=== PATIENT | female | born 1950 | race Caucasian/White ===

== ENCOUNTER 2022-05-08 16:36 | Inpatient (IN) ==
[2022-05-08] MEDS ORDERED: Naloxone 0.4 MG/ML INJ IVP PRN (19:42)
[2022-05-08] MEDS ORDERED: Ondansetron 4 MG/2 ML VIAL IVP PRN (19:42)
[2022-05-08] MEDS ORDERED: *HR* HYDROcodone/Acet 5/325 mg TABLET PO PRN (19:42)
[2022-05-08] MEDS ORDERED: Melatonin 3 MG TABLET PO PRN (19:42)
[2022-05-08] MEDS ORDERED: *HR* OxyCODONE Immed Rel 5 MG TABLET PO PRN (19:42)
[2022-05-08] MEDS ORDERED: *HR* Promethazine 25 MG/ML VIAL IM PRN (19:42)
[2022-05-08] MEDS ORDERED: Acetaminophen 325 MG TABLET PO PRN (19:42)
[2022-05-08] MEDS ORDERED: Azithromycin 500 MG in 0.9 % Sodium Chloride 250 ML IVPB SCH (21:00)
[2022-05-08] MEDS ORDERED: *HR* Labetalol 20 MG/4 ML SYRINGE IVP PRN (22:14)
[2022-05-08] MEDS ORDERED: diazePAM 2 MG TABLET PO SCH (22:15)
[2022-05-08] MEDS: Ipratropium/Albuterol Neb 3 ML IH SCH (23:59)
[2022-05-09 02:08] LABS: Basophils % 0.2 %; Hematocrit 34.4 % (35.3-44.9); Hemoglobin 11.5 g/dL (11.5-15.4); Immature Granulocytes % 0.3 % (0-4); Lymphocytes # 0.9 K/mcL (0.6-4.6); Lymphocytes % 10.1 %; Mean Corpuscular HGB Conc 33.4 g/dL (31.6-35.5); Mean Corpuscular Hemoglobin 31.4 pg (28.0-33.3); Mean Platelet Volume 9.2 fL (9.4-12.4); Monocytes # 0.9 K/mcL (0.0-1.3); Monocytes % 9.5 %; Neutrophils # 7.3 K/mcL (1.6-8.9); Platelet Count 191 K/mcL (140-400); Red Blood Count 3.66 M/mcL (3.82-4.97); Red Cell Distribution Width 12.9 % (11.5-14.5); Segmented Neutrophils % 79.9 %; White Blood Count 9.1 K/mcL (4.3-11.1)
[2022-05-09 02:16] LABS: INR 1.1
[2022-05-09 02:28] LABS: BUN/Creatinine Ratio 17 (6-26); Blood Urea Nitrogen 8 mg/dL (8-23); Calcium 7.4 mg/dL (8.6-10.3); Carbon Dioxide 27 mEq/L (23-29); Chloride 109 mEq/L (98-107); Glucose 76 mg/dL (70-105); Magnesium 1.6 mg/dL (1.6-2.6); Osmolality,Calculated 297 (280-300); Potassium 3.2 mEq/L (3.5-5.1); Sodium 145 mEq/L (136-145); eGFR For African Americans > 60 (> 60); eGFR For Non-African Americans > 60 (> 60)
[2022-05-09] MEDS: Ipratropium/Albuterol Neb 3 ML IH SCH ×6 (04:12→23:50)
[2022-05-09] MEDS ORDERED: MethylPREDNISolone 40 MG/ML VIAL IVP SCH (06:00)
[2022-05-09] MEDS ORDERED: Potassium Chloride Elixir 20 MEQ/15 ML UDC PO ONE (07:43)
[2022-05-09] MEDS ORDERED: Talc (sterile) 4 GM, 0.9 % Sodium Chloride 50 ML, Syringe CATH TIP 1 EACH IX ONE (09:15)
[2022-05-09] MEDS ORDERED: Budesonide/Formoterol 80/4.5 1 PUFF INH IH SCH (10:00)
[2022-05-09] MEDS ORDERED: Ketamine HCL *QUVA* 50mg (1mL) SYRINGE ONE (11:04)
[2022-05-09] MEDS ORDERED: Ondansetron 4 MG/2 ML VIAL ONE (11:05)
[2022-05-09] MEDS ORDERED: Lidocaine -MPF 2% 2 ML VIAL ONE (11:05)
[2022-05-09] MEDS ORDERED: *HR* Rocuronium Bromide 50 MG/5 ML VIAL ONE (11:05)
[2022-05-09] MEDS ORDERED: *HR* Propofol 200 MG/20 ML VIAL IVP ONE (11:05)
[2022-05-09] MEDS ORDERED: methocarbamoL 500 MG TABLET PO PRN (12:16)
[2022-05-09] MEDS ORDERED: Sugammadex Sodium 200 MG/2 ML VIAL IV ONE (12:37)
[2022-05-09] MEDS: *HR* FentaNYL (PF) 100 MCG/2 ML VIAL IVP PRN ×3 (13:30→13:53)
[2022-05-09] MEDS ORDERED: Acetaminophen IV 1,000 MG/100 ML BAG IVPB ONE (14:38)
[2022-05-09] MEDS ORDERED: 0.9 % Sodium Chloride 1,000 ML IVC SCH (15:25)
[2022-05-09] MEDS ORDERED: Ondansetron 4 MG/2 ML VIAL IVP PRN (15:25)
[2022-05-09] MEDS ORDERED: Melatonin 3 MG TABLET PO PRN (15:25)
[2022-05-09] MEDS ORDERED: Acetaminophen 325 MG TABLET PO PRN (15:25)
[2022-05-09] MEDS ORDERED: *HR* Promethazine 25 MG/ML VIAL IM PRN (15:25)
[2022-05-09] MEDS: Gabapentin 300 MG CAPSULE PO SCH ×2 (15:45→21:58)
[2022-05-09] MEDS: *HR* OxyCODONE Immed Rel 5 MG TABLET PO PRN ×2 (15:45→21:59)
[2022-05-09] MEDS: *HR* Heparin 5,000 UNIT/ML VIAL SQ SCH (17:27)
[2022-05-09] MEDS: Ketorolac 30 MG/ML VIAL IVP SCH ×2 (17:27→23:53)
[2022-05-09] MEDS: Budesonide/Formoterol 80/4.5 1 PUFF INH IH SCH (20:24)
[2022-05-09] MEDS ORDERED: traZODone 50 MG TABLET PO SCH (21:00)
[2022-05-09] MEDS: diazePAM 2 MG TABLET PO SCH (21:58)
[2022-05-09] MEDS: Sennosides/Docusate Sodium TABLET PO SCH (21:58)
[2022-05-09] MEDS: Azithromycin 500 MG in 0.9 % Sodium Chloride 250 ML IVPB SCH (21:59)
[2022-05-09] MEDS: methocarbamoL 500 MG TABLET PO PRN (21:59)
[2022-05-09] MEDS: traZODone 50 MG TABLET PO SCH (21:59)
[2022-05-10 03:39] LABS: Basophils % 0.2 %; Hematocrit 35.2 % (35.3-44.9); Hemoglobin 11.8 g/dL (11.5-15.4); Immature Granulocytes % 0.7 % (0-4); Lymphocytes % 6.9 %; Mean Corpuscular HGB Conc 33.5 g/dL (31.6-35.5); Mean Corpuscular Hemoglobin 31.5 pg (28.0-33.3); Mean Corpuscular Volume 93.9 fL (83.0-100.0); Mean Platelet Volume 9.4 fL (9.4-12.4); Monocytes # 1.2 K/mcL (0.0-1.3); Monocytes % 7.9 %; Platelet Count 182 K/mcL (140-400); Red Blood Count 3.75 M/mcL (3.82-4.97); Red Cell Distribution Width 12.9 % (11.5-14.5); Segmented Neutrophils % 84.3 %
[2022-05-10 03:43] LABS: Neutrophils # 12.7 K/mcL (1.6-8.9)
[2022-05-10 03:56] LABS: BUN/Creatinine Ratio 23 (6-26); Blood Urea Nitrogen 15 mg/dL (8-23); Calcium 8.8 mg/dL (8.6-10.3); Carbon Dioxide 35 mEq/L (23-29); Chloride 102 mEq/L (98-107); Glucose 136 mg/dL (70-105); Osmolality,Calculated 293 (280-300); Potassium 3.7 mEq/L (3.5-5.1); Sodium 140 mEq/L (136-145); eGFR For African Americans > 60 (> 60); eGFR For Non-African Americans > 60 (> 60)
[2022-05-10] MEDS: Ipratropium/Albuterol Neb 3 ML IH SCH ×6 (04:19→23:34)
[2022-05-10] MEDS: Ketorolac 30 MG/ML VIAL IVP SCH ×3 (05:36→17:34)
[2022-05-10] MEDS: *HR* Heparin 5,000 UNIT/ML VIAL SQ SCH ×2 (05:37→17:35)
[2022-05-10] MEDS: Budesonide/Formoterol 80/4.5 1 PUFF INH IH SCH ×2 (07:40→20:07)
[2022-05-10] MEDS: BuPROPion XL (24 HR) 150 MG TABLET PO SCH (08:16)
[2022-05-10] MEDS: *HR* OxyCODONE Immed Rel 5 MG TABLET PO PRN ×2 (08:16→14:06)
[2022-05-10] MEDS: Gabapentin 300 MG CAPSULE PO SCH ×3 (08:17→20:56)
[2022-05-10] MEDS: predniSONE 20 MG TABLET PO SCH (08:17)
[2022-05-10] MEDS: Sennosides/Docusate Sodium TABLET PO SCH ×2 (08:17→20:56)
[2022-05-10] MEDS: Anastrozole 1 MG TABLET PO SCH (08:17)
[2022-05-10] MEDS ORDERED: predniSONE 20 MG TABLET PO SCH (09:00)
[2022-05-10] MEDS ORDERED: Anastrozole 1 MG TABLET PO SCH (09:00)
[2022-05-10] MEDS ORDERED: BuPROPion XL (24 HR) 150 MG TABLET PO SCH (09:00)
[2022-05-10] MEDS: *HR* HYDROcodone/Acet 5/325 mg TABLET PO PRN ×2 (11:13→17:35)
[2022-05-10] MEDS: methocarbamoL 500 MG TABLET PO PRN (20:56)
[2022-05-10] MEDS: Azithromycin 500 MG in 0.9 % Sodium Chloride 250 ML IVPB SCH (20:56)
[2022-05-10] MEDS: traZODone 50 MG TABLET PO SCH (20:57)
[2022-05-10] MEDS: diazePAM 2 MG TABLET PO SCH (20:57)
[2022-05-11] MEDS: Ketorolac 30 MG/ML VIAL IVP SCH ×4 (00:11→17:00)
[2022-05-11] MEDS: *HR* HYDROcodone/Acet 5/325 mg TABLET PO PRN (00:12)
[2022-05-11 01:33] LABS: Basophils % 0.1 %; Eosinophils % 0.1 %; Hematocrit 35.4 % (35.3-44.9); Hemoglobin 11.9 g/dL (11.5-15.4); Immature Granulocytes % 0.6 % (0-4); Mean Corpuscular HGB Conc 33.6 g/dL (31.6-35.5); Mean Corpuscular Hemoglobin 31.9 pg (28.0-33.3); Mean Corpuscular Volume 94.9 fL (83.0-100.0); Mean Platelet Volume 9.7 fL (9.4-12.4); Monocytes # 1.2 K/mcL (0.0-1.3); Monocytes % 8.6 %; Neutrophils # 11.7 K/mcL (1.6-8.9); Platelet Count 181 K/mcL (140-400); Red Blood Count 3.73 M/mcL (3.82-4.97); Red Cell Distribution Width 13.2 % (11.5-14.5); Segmented Neutrophils % 83.6 %
[2022-05-11 01:53] LABS: BUN/Creatinine Ratio 31 (6-26); Blood Urea Nitrogen 18 mg/dL (8-23); Calcium 8.5 mg/dL (8.6-10.3); Carbon Dioxide 31 mEq/L (23-29); Chloride 103 mEq/L (98-107); Glucose 140 mg/dL (70-105); Osmolality,Calculated 294 (280-300); Sodium 140 mEq/L (136-145); eGFR For African Americans > 60 (> 60); eGFR For Non-African Americans > 60 (> 60)
[2022-05-11] MEDS: Ipratropium/Albuterol Neb 3 ML IH SCH ×6 (04:00→23:03)
[2022-05-11] MEDS: *HR* Heparin 5,000 UNIT/ML VIAL SQ SCH ×2 (05:31→17:00)
[2022-05-11] MEDS: *HR* OxyCODONE Immed Rel 5 MG TABLET PO PRN ×2 (07:15→14:44)
[2022-05-11] MEDS: Anastrozole 1 MG TABLET PO SCH (07:16)
[2022-05-11] MEDS: BuPROPion XL (24 HR) 150 MG TABLET PO SCH (07:16)
[2022-05-11] MEDS: Gabapentin 300 MG CAPSULE PO SCH ×3 (07:16→20:10)
[2022-05-11] MEDS: predniSONE 20 MG TABLET PO SCH (07:16)
[2022-05-11] MEDS: Sennosides/Docusate Sodium TABLET PO SCH ×2 (07:17→20:10)
[2022-05-11] MEDS: Budesonide/Formoterol 80/4.5 1 PUFF INH IH SCH ×2 (07:55→20:09)
[2022-05-11] MEDS: methocarbamoL 500 MG TABLET PO PRN (20:10)
[2022-05-11] MEDS: diazePAM 2 MG TABLET PO SCH (20:10)
[2022-05-11] MEDS: traZODone 50 MG TABLET PO SCH (20:10)
[2022-05-11] MEDS: Azithromycin 500 MG in 0.9 % Sodium Chloride 250 ML IVPB SCH (20:12)
[2022-05-12 04:00] LABS: Basophils % 0.3 %; Eosinophils % 0.4 %; Hematocrit 33.4 % (35.3-44.9); Hemoglobin 10.9 g/dL (11.5-15.4); Immature Granulocytes % 0.6 % (0-4); Lymphocytes # 0.9 K/mcL (0.6-4.6); Lymphocytes % 9.6 %; Mean Corpuscular HGB Conc 32.6 g/dL (31.6-35.5); Mean Corpuscular Hemoglobin 31.3 pg (28.0-33.3); Mean Platelet Volume 10.2 fL (9.4-12.4); Monocytes # 0.8 K/mcL (0.0-1.3); Monocytes % 7.7 %; Platelet Count 184 K/mcL (140-400); Red Blood Count 3.48 M/mcL (3.82-4.97); Red Cell Distribution Width 13.2 % (11.5-14.5); Segmented Neutrophils % 81.4 %; White Blood Count 9.8 K/mcL (4.3-11.1)
[2022-05-12] MEDS: Ipratropium/Albuterol Neb 3 ML IH SCH ×5 (04:14→20:42)
[2022-05-12 04:26] LABS: BUN/Creatinine Ratio 27 (6-26); Blood Urea Nitrogen 18 mg/dL (8-23); Calcium 8.5 mg/dL (8.6-10.3); Carbon Dioxide 34 mEq/L (23-29); Chloride 104 mEq/L (98-107); Glucose 100 mg/dL (70-105); Osmolality,Calculated 292 (280-300); Potassium 4.3 mEq/L (3.5-5.1); Sodium 140 mEq/L (136-145); eGFR For African Americans > 60 (> 60); eGFR For Non-African Americans > 60 (> 60)
[2022-05-12] MEDS: *HR* Heparin 5,000 UNIT/ML VIAL SQ SCH ×2 (05:30→18:15)
[2022-05-12] MEDS: Budesonide/Formoterol 80/4.5 1 PUFF INH IH SCH ×2 (07:36→20:42)
[2022-05-12] MEDS: predniSONE 20 MG TABLET PO SCH (08:02)
[2022-05-12] MEDS: BuPROPion XL (24 HR) 150 MG TABLET PO SCH (08:02)
[2022-05-12] MEDS: Gabapentin 300 MG CAPSULE PO SCH ×3 (08:03→20:40)
[2022-05-12] MEDS: Anastrozole 1 MG TABLET PO SCH (08:03)
[2022-05-12] MEDS: *HR* HYDROcodone/Acet 5/325 mg TABLET PO PRN ×3 (08:03→20:40)
[2022-05-12] MEDS: Sennosides/Docusate Sodium TABLET PO SCH ×2 (08:03→20:40)
[2022-05-12 13:15] LABS: Magnesium 2.2 mg/dL (1.6-2.6)
[2022-05-12] MEDS: methocarbamoL 500 MG TABLET PO PRN (15:45)
[2022-05-12] MEDS: diazePAM 2 MG TABLET PO SCH (20:40)
[2022-05-12] MEDS: traZODone 50 MG TABLET PO SCH (20:40)
[2022-05-13] MEDS: Ipratropium/Albuterol Neb 3 ML IH SCH ×7 (00:01→22:50)
[2022-05-13] MEDS: *HR* OxyCODONE Immed Rel 5 MG TABLET PO PRN ×3 (05:47→18:23)
[2022-05-13] MEDS: *HR* Heparin 5,000 UNIT/ML VIAL SQ SCH ×2 (05:47→18:23)
[2022-05-13] MEDS: Budesonide/Formoterol 80/4.5 1 PUFF INH IH SCH ×2 (07:11→20:05)
[2022-05-13] MEDS: Sennosides/Docusate Sodium TABLET PO SCH ×2 (08:49→19:26)
[2022-05-13] MEDS: BuPROPion XL (24 HR) 150 MG TABLET PO SCH (08:49)
[2022-05-13] MEDS: Gabapentin 300 MG CAPSULE PO SCH ×3 (08:49→21:26)
[2022-05-13] MEDS: Anastrozole 1 MG TABLET PO SCH (08:50)
[2022-05-13] MEDS: predniSONE 20 MG TABLET PO SCH (08:50)
[2022-05-13] MEDS: methocarbamoL 500 MG TABLET PO PRN ×2 (08:53→21:26)
[2022-05-13] MEDS: traZODone 50 MG TABLET PO SCH (21:26)
[2022-05-13] MEDS: diazePAM 2 MG TABLET PO SCH (21:26)
[2022-05-14 03:40] LABS: Basophils # 0.1 K/mcL (0.0-0.2); Basophils % 0.8 %; Eosinophils # 0.1 K/mcL (0.0-0.6); Eosinophils % 1.2 %; Hematocrit 33.9 % (35.3-44.9); Immature Granulocytes % 2.2 % (0-4); Lymphocytes # 1.4 K/mcL (0.6-4.6); Lymphocytes % 13.6 %; Mean Corpuscular HGB Conc 32.4 g/dL (31.6-35.5); Mean Corpuscular Hemoglobin 31.3 pg (28.0-33.3); Mean Corpuscular Volume 96.3 fL (83.0-100.0); Mean Platelet Volume 9.4 fL (9.4-12.4); Monocytes # 0.8 K/mcL (0.0-1.3); Monocytes % 8.1 %; Neutrophils # 7.5 K/mcL (1.6-8.9); Platelet Count 206 K/mcL (140-400); Red Blood Count 3.52 M/mcL (3.82-4.97); Red Cell Distribution Width 13.2 % (11.5-14.5); Segmented Neutrophils % 74.1 %; White Blood Count 10.1 K/mcL (4.3-11.1)
[2022-05-14] MEDS: Ipratropium/Albuterol Neb 3 ML IH SCH ×6 (03:56→23:07)
[2022-05-14 03:59] LABS: BUN/Creatinine Ratio 29 (6-26); Blood Urea Nitrogen 21 mg/dL (8-23); Calcium 8.9 mg/dL (8.6-10.3); Carbon Dioxide 37 mEq/L (23-29); Chloride 99 mEq/L (98-107); Glucose 103 mg/dL (70-105); Osmolality,Calculated 293 (280-300); Potassium 4.6 mEq/L (3.5-5.1); Sodium 140 mEq/L (136-145); eGFR For African Americans > 60 (> 60); eGFR For Non-African Americans > 60 (> 60)
[2022-05-14] MEDS: *HR* OxyCODONE Immed Rel 5 MG TABLET PO PRN ×2 (04:52→15:01)
[2022-05-14] MEDS: *HR* Heparin 5,000 UNIT/ML VIAL SQ SCH ×2 (04:52→16:56)
[2022-05-14] MEDS: Budesonide/Formoterol 80/4.5 1 PUFF INH IH SCH ×2 (07:29→19:58)
[2022-05-14] MEDS: BuPROPion XL (24 HR) 150 MG TABLET PO SCH (08:29)
[2022-05-14] MEDS: Gabapentin 300 MG CAPSULE PO SCH ×3 (08:30→22:04)
[2022-05-14] MEDS: Anastrozole 1 MG TABLET PO SCH (08:30)
[2022-05-14] MEDS: Sennosides/Docusate Sodium TABLET PO SCH ×2 (08:31→22:03)
[2022-05-14] MEDS: methocarbamoL 500 MG TABLET PO PRN ×2 (08:34→16:56)
[2022-05-14] MEDS ORDERED: *HR* HYDROmorphone (PF) 1 MG/ML SYRINGE IVP ONE (19:18)
[2022-05-14] MEDS ORDERED: Azithromycin 500 MG in 0.9 % Sodium Chloride 250 ML IVPB SCH (22:00)
[2022-05-14] MEDS: diazePAM 2 MG TABLET PO SCH (22:04)
[2022-05-14] MEDS: traZODone 50 MG TABLET PO SCH (22:04)
[2022-05-15 02:08] LABS: Hematocrit 33.4 % (35.3-44.9); Hemoglobin 10.7 g/dL (11.5-15.4); Mean Corpuscular Hemoglobin 31.5 pg (28.0-33.3); Mean Corpuscular Volume 98.2 fL (83.0-100.0); Mean Platelet Volume 9.4 fL (9.4-12.4); Platelet Count 201 K/mcL (140-400); Red Cell Distribution Width 13.2 % (11.5-14.5); White Blood Count 9.3 K/mcL (4.3-11.1)
[2022-05-15] MEDS: Ipratropium/Albuterol Neb 3 ML IH SCH ×4 (03:55→15:50)
[2022-05-15] MEDS: Budesonide/Formoterol 80/4.5 1 PUFF INH IH SCH (07:45)
[2022-05-15] MEDS: BuPROPion XL (24 HR) 150 MG TABLET PO SCH (08:08)
[2022-05-15] MEDS: *HR* OxyCODONE Immed Rel 5 MG TABLET PO PRN ×3 (08:08→19:04)
[2022-05-15] MEDS: methocarbamoL 500 MG TABLET PO PRN ×2 (08:09→17:40)
[2022-05-15] MEDS: Gabapentin 300 MG CAPSULE PO SCH ×2 (08:09→17:40)
[2022-05-15] MEDS: Anastrozole 1 MG TABLET PO SCH (08:09)
[2022-05-15] MEDS: Sennosides/Docusate Sodium TABLET PO SCH (08:10)
[2022-05-15] MEDS: *HR* Heparin 5,000 UNIT/ML VIAL SQ SCH ×2 (08:18→17:41)
[2022-05-15 15:15] LABS: Influenza A PCR Negative (Negative); Influenza B PCR Negative (Negative); Resp. Syncytial Virus PCR Negative (Negative)
[2022-05-15 15:22] LABS: SARS-CoV-2 by PCR (In House) Negative (Negative)
[2022-05-15 16:09] VITALS: PULSE 109
[2022-05-15 18:56] VITALS: BP 120/48; TEMP 98.4; O2SAT 97
== END 2022-05-15 19:05 | disposition other institution (70) | DRG 163 ==
LOC: 2NENU → SUATTDRO 18:44 → 2NNU 05-09 15:18
PROVIDERS: ADMIT Internal Medicine; ATTEND Family Medicine